=== PATIENT | male | born 1945 | race Caucasian/White ===

== ENCOUNTER → 2024-07-13 06:31 | Outpatient (REF) | payer MEDICARE, SELFPAY | LOC: RAD 06:31 | PROVIDERS: ATTENDING PHYSICIAN Family Medicine | DX: Z87.891 Personal history of nicotine dependence (principal) | CPT/HCPCS: 76770 ==

== ENCOUNTER → 2025-08-30 08:41 | Outpatient (REF) | payer MEDICARE, SELFPAY | LOC: SDSPAT 08:41 | PROVIDERS: ATTENDING PHYSICIAN Internal Medicine Cardiovascular Disease; FAMILY PHYSICIAN Family Medicine; OTHER PHYSICIAN Internal Medicine Cardiovascular Disease | DX: I48.19 Other persistent atrial fibrillation (principal) | CPT/HCPCS: 93005 ==

== ENCOUNTER → 2025-09-01 14:47 | Outpatient (REF) | payer MEDICARE, SELFPAY | LOC: HWRCS 14:47 | PROVIDERS: ATTENDING PHYSICIAN Internal Medicine Cardiovascular Disease; FAMILY PHYSICIAN Family Medicine | DX: I10 Essential (primary) hypertension (principal) | CPT/HCPCS: 93306 ==

== ENCOUNTER 2025-09-20 06:40 | Day surgery (SDC) | payer MEDICARE, SELFPAY ==
[2025-08-30 09:01] VITALS: BMI 22.7
== END 2025-09-20 09:30 | disposition home or self-care (01) ==
LOC: CATH 06:40
PROVIDERS: ATTENDING PHYSICIAN Internal Medicine Cardiovascular Disease; FAMILY PHYSICIAN Family Medicine; OTHER PHYSICIAN Internal Medicine Cardiovascular Disease
DX: I48.19 Other persistent atrial fibrillation (principal); I10 Essential (primary) hypertension; I44.0 Atrioventricular block, first degree; I49.8 Other specified cardiac arrhythmias; Z79.01 Long term (current) use of anticoagulants; Z79.899 Other long term (current) drug therapy
CPT/HCPCS: 92960; 93005